=== PATIENT | male | born 1935 | race Caucasian/White ===

== ENCOUNTER 2023-07-17 11:54 | Inpatient (IN) ==
[2023-07-17] MEDS ORDERED: 0.9 % SODIUM CHLORIDE 500 ML IV ONE ×2 (12:40→15:35)
[2023-07-17 13:04] LABS: POC Calcium, Ionized 1.16 (1.16-1.32); POC Creatinine 3.5 (0.6-1.2); POC Potassium 6.3 (3.3-5.1)
[2023-07-17] MEDS ORDERED: DEXTROSE 50% 50 ML VIAL IV ONE (13:21)
[2023-07-17] MEDS ORDERED: 0.9 % SODIUM CHLORIDE 1,000 ML IV ONE (13:44)
[2023-07-17 14:12] LABS: Basophils # (Auto) 0.03 K/mcL (0.00-0.30); Basophils % (Auto) 0.2 % (0.0-2.0); Eosinophils # (Auto) 0.01 K/mcL (0.00-0.70); Eosinophils % (Auto) 0.1 % (0.0-7.0); Hematocrit 33.2 % (40.1-51.0); Hemoglobin 11.3 g/dL (13.7-17.5); Lymphocytes # (Auto) 1.08 K/mcL (1.50-4.80); Lymphocytes % (Auto) 7.2 % (15.5-49.0); Mean Cell Volume 97.6 fL (80.0-100.0); Mean Platelet Volume 8.6 fL (8.8-12.5); Monocytes # (Auto) 1.04 K/mcL (0.10-0.90); Neutrophils % (Auto) 84.4 % (38.0-78.0); Platelet Count 370 K/mcL (140-440); Red Cell Distribution Width 14.7 % (11.5-14.5); WBC 14.9 K/mcL (4.5-11.0)
[2023-07-17 14:19] LABS: Albumin 3.3 gm/dL (3.2-5.2); Bilirubin,Direct 0.3 mg/dL (<0.3); Bilirubin,Total 0.5 mg/dL (0.1-1.0); Globulin 2.9 gm/dL (2.2-3.7)
[2023-07-17 14:33] LABS: Blood Urea Nitrogen 92 mg/dL (8-23); Calcium 9.4 mg/dL (8.6-10.4); Carbon Dioxide 17 mmol/L (22-30); Chloride 94 mmol/L (96-108); Glomerular Filtration Rate 19; Glucose 44 mg/dL (70-105)
[2023-07-17] MEDS ORDERED: CALCIUM GLUCONATE 7 MEQ in DEXTROSE 5% IN WATER 50 ML IV ONE (14:42)
[2023-07-17] MEDS ORDERED: INSULIN REGULAR, HUMAN 1 UNIT/0.01 ML UNIT IV ONE (14:42)
[2023-07-17] MEDS ORDERED: DEXTROSE 50% 50 ML SYRINGE IV ONE (14:45)
[2023-07-17] MEDS ORDERED: CEFEPIME 1 GM VIAL IV ONE (14:48)
[2023-07-17 15:31] LABS: Appearance,Urine CLEAR (Clear); Bilirubin,Urine Negative (Negative); Color,Urine YELLOW; Culture Indicated,Urine No; Glucose,Urine (UA) Negative (Negative); Ketones,Urine Negative (Negative); Leukocyte Esterase,Urine Negative /uL (Negative); Nitrate,Urine Negative (Negative); Protein,Urine Negative (Negative); Specific Gravity,Urine 1.017 (1.000-1.035); Urine Blood Negative (Negative); Urobilinogen,Urine Negative
[2023-07-17] MEDS ORDERED: NOREPINEPHRINE BITARTRATE 4 MG/4 ML VIAL IV ONE (15:33)
[2023-07-17] MEDS ORDERED: 0.9 % SODIUM CHLORIDE 250 ML IV SCH (15:45)
[2023-07-17] MEDS ORDERED: NOREPINEPHRINE BITARTRATE 8 MG in 0.9 % SODIUM CHLORIDE 242 ML IV SCH (15:45)
[2023-07-17 15:50] LABS: Urea Nitrogen, Urine 428 mg/dL
[2023-07-17 15:56] LABS: POC Calcium, Ionized 1.3 (1.16-1.32); POC Creatinine 3.2 (0.6-1.2); POC Potassium 5.4 (3.3-5.1)
[2023-07-17 15:57] LABS: Creatinine,Urine Random 151.1 mg/dL (39.0-259.0)
[2023-07-17] MEDS ORDERED: SODIUM ZIRCONIUM CYCLOSILICATE 10 GM PACKET PO ONE (16:02)
[2023-07-17] MEDS ORDERED: morphine 2 MG/ML VIAL IV ONE (16:40)
[2023-07-17] MEDS ORDERED: SODIUM ZIRCONIUM CYCLOSILICATE 10 GM PACKET PO SCH (17:00)
[2023-07-17] MEDS ORDERED: DEXTROSE 31 GM ORAL.SUSP PO PRN (18:06)
[2023-07-17] MEDS ORDERED: DEXTROSE 50% 50 ML VIAL IV PRN (18:06)
[2023-07-17] MEDS ORDERED: NALOXONE HCL 0.4 MG/ML VIAL IV PRN (18:46)
[2023-07-17] MEDS ORDERED: SENNOSIDES 1 TABLET PO PRN (18:46)
[2023-07-17] MEDS ORDERED: ACETAMINOPHEN 325 MG TABLET PO PRN (18:46)
[2023-07-17] MEDS ORDERED: BISACODYL 10 MG SUPP.RECT PR PRN (18:46)
[2023-07-17] MEDS ORDERED: ONDANSETRON 4 MG/2 ML VIAL IV PRN (18:46)
[2023-07-17 18:58] LABS: Hemoglobin A1C 5.7 % Hgb (4.0-6.0)
[2023-07-17 20:37] LABS: Thyroid Stimulating Hormone 2.64 uIU/mL (0.27-5.01)
[2023-07-17 20:41] LABS: ALT/SGPT 15 U/L (<40); AST/SGOT 16 U/L (<40); Albumin/Globulin Ratio 1.1 (1.0-2.3); Alkaline Phosphatase 99 U/L (39-117); Bilirubin,Total 0.7 mg/dL (0.1-1.0); Blood Urea Nitrogen 86 mg/dL (8-23); Calcium 9.1 mg/dL (8.6-10.4); Carbon Dioxide 12 mmol/L (22-30); Chloride 98 mmol/L (96-108); Globulin 2.8 gm/dL (2.2-3.7); Glomerular Filtration Rate 26; Glucose 111 mg/dL (70-105)
[2023-07-17] MEDS: INSULIN LISPRO 1 UNIT/0.01 ML UNIT SQ SCH (20:51)
[2023-07-17] MEDS: FAMOTIDINE/PF 20 MG/2 ML VIAL IV SCH (20:53)
[2023-07-17] MEDS: 0.9 % SODIUM CHLORIDE 10 ML SYRINGE IV SCH (20:54)
[2023-07-17] MEDS: HYDROcodone/APAP 5/325MG TABLET PO PRN (20:55)
[2023-07-17 22:03] LABS: Iron 78 ug/dL (61-157)
[2023-07-17] MEDS: HYDROmorphone 0.5 MG/0.5 ML SYRINGE IV PRN (23:36)
[2023-07-18] MEDS ORDERED: SODIUM ZIRCONIUM CYCLOSILICATE 10 GM PACKET PO SCH
[2023-07-18] MEDS: NOREPINEPHRINE BITARTRATE 8 MG in 0.9 % SODIUM CHLORIDE 242 ML IV SCH ×3 (03:49→16:57)
[2023-07-18] MEDS: HYDROcodone/APAP 5/325MG TABLET PO PRN ×2 (03:51→23:17)
[2023-07-18] MEDS: 0.9 % SODIUM CHLORIDE 10 ML SYRINGE IV SCH ×3 (05:29→22:44)
[2023-07-18 06:39] LABS: Basophils # (Auto) 0.03 K/mcL (0.00-0.30); Basophils % (Auto) 0.2 % (0.0-2.0); Eosinophils # (Auto) 0 K/mcL (0.00-0.70); Eosinophils % (Auto) 0 % (0.0-7.0); Hemoglobin 10.6 g/dL (13.7-17.5); Lymphocytes # (Auto) 0.86 K/mcL (1.50-4.80); Lymphocytes % (Auto) 5.5 % (15.5-49.0); Mean Cell Volume 100.9 fL (80.0-100.0); Mean Corpuscular HGB Conc 32.1 g/dL (31.0-36.0); Mean Platelet Volume 8.4 fL (8.8-12.5); Monocytes # (Auto) 1.29 K/mcL (0.10-0.90); Monocytes % (Auto) 8.2 % (1.0-12.0); Neutrophils % (Auto) 85.5 % (38.0-78.0); Platelet Count 327 K/mcL (140-440); RBC 3.27 M/mcL (4.63-6.08); Red Cell Distribution Width 14.6 % (11.5-14.5); WBC 15.7 K/mcL (4.5-11.0)
[2023-07-18] MEDS: INSULIN LISPRO 1 UNIT/0.01 ML UNIT SQ SCH ×4 (07:14→22:43)
[2023-07-18 07:16] LABS: ALT/SGPT 13 U/L (<40); AST/SGOT 14 U/L (<40); Albumin 2.7 gm/dL (3.2-5.2); Alkaline Phosphatase 94 U/L (39-117); Bilirubin,Total 0.6 mg/dL (0.1-1.0); Blood Urea Nitrogen 76 mg/dL (8-23); Calcium 9.2 mg/dL (8.6-10.4); Carbon Dioxide 11 mmol/L (22-30); Chloride 102 mmol/L (96-108); Globulin 2.8 gm/dL (2.2-3.7); Glomerular Filtration Rate 33; Glucose 124 mg/dL (70-105)
[2023-07-18] MEDS: FAMOTIDINE/PF 20 MG/2 ML VIAL IV SCH (08:38)
[2023-07-18] MEDS: SODIUM BICARBONATE 650 MG TABLET PO SCH ×3 (09:25→22:43)
[2023-07-18] MEDS: SODIUM ZIRCONIUM CYCLOSILICATE 10 GM PACKET PO SCH ×3 (09:25→22:43)
[2023-07-18] MEDS: AMPICILLIN SODIUM/SULBACTAM NA 1.5 GM in 0.9 % SODIUM CHLORIDE 50 ML IV SCH ×3 (09:37→22:43)
[2023-07-18] MEDS: HYDROmorphone 0.5 MG/0.5 ML SYRINGE IV PRN (18:50)
[2023-07-18 19:11] LABS: Blood Urea Nitrogen 68 mg/dL (8-23); Calcium 9.3 mg/dL (8.6-10.4); Carbon Dioxide 15 mmol/L (22-30); Chloride 101 mmol/L (96-108); Glomerular Filtration Rate 38; Glucose 143 mg/dL (70-105)
[2023-07-18] MEDS: APIXABAN 5 MG TABLET PO SCH (22:43)
[2023-07-19] MEDS: LACTATED RINGERS 1,000 ML IV SCH ×2 (00:05→11:37)
[2023-07-19] MEDS: 0.9 % SODIUM CHLORIDE 250 ML IV SCH ×2 (00:05→14:33)
[2023-07-19] MEDS: HYDROmorphone 0.5 MG/0.5 ML SYRINGE IV PRN (01:06)
[2023-07-19] MEDS: AMPICILLIN SODIUM/SULBACTAM NA 1.5 GM in 0.9 % SODIUM CHLORIDE 50 ML IV SCH ×4 (02:57→20:53)
[2023-07-19 06:39] LABS: Basophils # (Auto) 0.05 K/mcL (0.00-0.30); Basophils % (Auto) 0.4 % (0.0-2.0); Eosinophils # (Auto) 0.02 K/mcL (0.00-0.70); Eosinophils % (Auto) 0.2 % (0.0-7.0); Hematocrit 36.7 % (40.1-51.0); Hemoglobin 12.4 g/dL (13.7-17.5); Lymphocytes # (Auto) 1.75 K/mcL (1.50-4.80); Lymphocytes % (Auto) 15.5 % (15.5-49.0); Mean Cell Volume 97.3 fL (80.0-100.0); Mean Corpuscular HGB Conc 33.8 g/dL (31.0-36.0); Mean Platelet Volume 8.8 fL (8.8-12.5); Monocytes # (Auto) 1.04 K/mcL (0.10-0.90); Monocytes % (Auto) 9.2 % (1.0-12.0); Neutrophils % (Auto) 73.7 % (38.0-78.0); Platelet Count 363 K/mcL (140-440); RBC 3.77 M/mcL (4.63-6.08); Red Cell Distribution Width 14.7 % (11.5-14.5); WBC 11.3 K/mcL (4.5-11.0)
[2023-07-19] MEDS: NOREPINEPHRINE BITARTRATE 8 MG in 0.9 % SODIUM CHLORIDE 242 ML IV SCH ×2 (06:45→22:59)
[2023-07-19] MEDS: 0.9 % SODIUM CHLORIDE 10 ML SYRINGE IV SCH ×4 (06:46→22:41)
[2023-07-19 07:15] LABS: ALT/SGPT 14 U/L (<40); AST/SGOT 16 U/L (<40); Albumin 3.1 gm/dL (3.2-5.2); Alkaline Phosphatase 109 U/L (39-117); Bilirubin,Total 0.9 mg/dL (0.1-1.0); Blood Urea Nitrogen 56 mg/dL (8-23); Calcium 9.4 mg/dL (8.6-10.4); Carbon Dioxide 15 mmol/L (22-30); Chloride 101 mmol/L (96-108); Globulin 3.1 gm/dL (2.2-3.7); Glomerular Filtration Rate 44; Glucose 128 mg/dL (70-105)
[2023-07-19] MEDS: INSULIN LISPRO 1 UNIT/0.01 ML UNIT SQ SCH ×4 (07:47→20:52)
[2023-07-19] MEDS: LIDOCAINE PATCH TOPICAL SCH ×2 (07:47→09:07)
[2023-07-19] MEDS: SODIUM BICARBONATE 650 MG TABLET PO SCH ×3 (09:06→20:52)
[2023-07-19] MEDS: APIXABAN 5 MG TABLET PO SCH ×2 (09:06→20:53)
[2023-07-19] MEDS: FAMOTIDINE/PF 20 MG/2 ML VIAL IV SCH (09:07)
[2023-07-19] MEDS: SODIUM ZIRCONIUM CYCLOSILICATE 10 GM PACKET PO SCH ×3 (09:07→20:53)
[2023-07-19] MEDS: ALBUMIN HUMAN 12.5 GM/50 ML VIAL IV SCH ×3 (11:00→22:41)
[2023-07-19] MEDS ORDERED: LACTATED RINGERS 500 ML IV ONE ×2 (16:15→23:47)
[2023-07-19] MEDS: HYDROCORTISONE SOD SUCC 100 MG VIAL IV SCH ×2 (16:35→22:19)
[2023-07-19] MEDS: HYDROcodone/APAP 5/325MG TABLET PO PRN ×2 (16:47→22:59)
[2023-07-19] MEDS ORDERED: NOREPINEPHRINE BITARTRATE 8 MG in 0.9 % SODIUM CHLORIDE 242 ML IV SCH (17:00)
[2023-07-20] MEDS: 0.9 % SODIUM CHLORIDE 250 ML IV SCH ×2 (02:03→14:13)
[2023-07-20] MEDS: 0.9 % SODIUM CHLORIDE 10 ML SYRINGE IV SCH ×6 (03:09→21:30)
[2023-07-20] MEDS: AMPICILLIN SODIUM/SULBACTAM NA 1.5 GM in 0.9 % SODIUM CHLORIDE 50 ML IV SCH ×4 (03:09→21:32)
[2023-07-20] MEDS: ALBUMIN HUMAN 12.5 GM/50 ML VIAL IV SCH ×3 (05:02→16:41)
[2023-07-20] MEDS: HYDROCORTISONE SOD SUCC 100 MG VIAL IV SCH ×3 (05:32→21:28)
[2023-07-20 07:18] LABS: Basophils # (Auto) 0.01 K/mcL (0.00-0.30); Basophils % (Auto) 0.1 % (0.0-2.0); Eosinophils # (Auto) 0 K/mcL (0.00-0.70); Eosinophils % (Auto) 0 % (0.0-7.0); Hematocrit 29.2 % (40.1-51.0); Hemoglobin 9.8 g/dL (13.7-17.5); Lymphocytes # (Auto) 0.63 K/mcL (1.50-4.80); Lymphocytes % (Auto) 6.4 % (15.5-49.0); Mean Cell Volume 99.3 fL (80.0-100.0); Mean Corpuscular HGB Conc 33.6 g/dL (31.0-36.0); Mean Platelet Volume 8.8 fL (8.8-12.5); Monocytes # (Auto) 0.34 K/mcL (0.10-0.90); Monocytes % (Auto) 3.5 % (1.0-12.0); Neutrophils % (Auto) 89.1 % (38.0-78.0); Platelet Count 282 K/mcL (140-440); RBC 2.94 M/mcL (4.63-6.08); Red Cell Distribution Width 14.4 % (11.5-14.5); WBC 9.8 K/mcL (4.5-11.0)
[2023-07-20] MEDS: INSULIN LISPRO 1 UNIT/0.01 ML UNIT SQ SCH ×4 (07:25→21:33)
[2023-07-20 08:12] LABS: ALT/SGPT 13 U/L (<40); AST/SGOT 14 U/L (<40); Albumin 2.6 gm/dL (3.2-5.2); Alkaline Phosphatase 88 U/L (39-117); Bilirubin,Total 0.5 mg/dL (0.1-1.0); Blood Urea Nitrogen 40 mg/dL (8-23); Calcium 8.9 mg/dL (8.6-10.4); Carbon Dioxide 19 mmol/L (22-30); Chloride 102 mmol/L (96-108); Globulin 2.6 gm/dL (2.2-3.7); Glomerular Filtration Rate 59; Glucose 192 mg/dL (70-105)
[2023-07-20] MEDS ORDERED: 0.9 % SODIUM CHLORIDE 10 ML SYRINGE IV PRN (09:16)
[2023-07-20] MEDS: APIXABAN 5 MG TABLET PO SCH ×2 (09:25→21:28)
[2023-07-20] MEDS: SODIUM BICARBONATE 650 MG TABLET PO SCH ×3 (09:25→21:28)
[2023-07-20] MEDS: LIDOCAINE PATCH TOPICAL SCH (09:25)
[2023-07-20] MEDS: FAMOTIDINE/PF 20 MG/2 ML VIAL IV SCH (09:25)
[2023-07-20 10:23] LABS: Appearance,Urine HAZY (Clear); Bilirubin,Urine Negative (Negative); Color,Urine RED; Culture Indicated,Urine yes; Glucose,Urine (UA) Negative (Negative); Ketones,Urine Negative (Negative); Leukocyte Esterase,Urine Negative /uL (Negative); Nitrate,Urine Negative (Negative); Protein,Urine 100 mg/dL (Negative); Urine Blood >=1.0 mg/dL (Negative); Urine RBC > 182 /hpf (0-1); Urine Squamous Epithelial Cell 0 /hpf (0-4); Urine WBC 102 /hpf (0-4); Urobilinogen,Urine Negative
[2023-07-20 10:31] LABS: INR 1.6 (0.9-1.1); Partial Thromboplastin Time 47.6 sec (20.0-37.0); Prothrombin Time 19.6 sec (11.9-14.5)
[2023-07-20] MEDS: NOREPINEPHRINE BITARTRATE 8 MG in 0.9 % SODIUM CHLORIDE 242 ML IV SCH (18:59)
[2023-07-20] MEDS: HYDROcodone/APAP 5/325MG TABLET PO PRN (21:28)
[2023-07-21] MEDS: 0.9 % SODIUM CHLORIDE 250 ML IV SCH (02:41)
[2023-07-21] MEDS: AMPICILLIN SODIUM/SULBACTAM NA 1.5 GM in 0.9 % SODIUM CHLORIDE 50 ML IV SCH ×2 (03:20→09:16)
[2023-07-21] MEDS: HYDROcodone/APAP 5/325MG TABLET PO PRN (03:55)
[2023-07-21] MEDS: HYDROCORTISONE SOD SUCC 100 MG VIAL IV SCH (05:41)
[2023-07-21] MEDS: 0.9 % SODIUM CHLORIDE 10 ML SYRINGE IV SCH ×2 (05:41→09:12)
[2023-07-21 06:50] LABS: Basophils # (Auto) 0.01 K/mcL (0.00-0.30); Basophils % (Auto) 0.1 % (0.0-2.0); Eosinophils # (Auto) 0 K/mcL (0.00-0.70); Eosinophils % (Auto) 0 % (0.0-7.0); Hematocrit 26.3 % (40.1-51.0); Lymphocytes # (Auto) 0.72 K/mcL (1.50-4.80); Lymphocytes % (Auto) 5.9 % (15.5-49.0); Mean Cell Volume 97.8 fL (80.0-100.0); Mean Corpuscular HGB Conc 34.2 g/dL (31.0-36.0); Mean Platelet Volume 8.9 fL (8.8-12.5); Monocytes # (Auto) 0.73 K/mcL (0.10-0.90); Neutrophils % (Auto) 87.1 % (38.0-78.0); Platelet Count 247 K/mcL (140-440); RBC 2.69 M/mcL (4.63-6.08); Red Cell Distribution Width 14.3 % (11.5-14.5); WBC 12.3 K/mcL (4.5-11.0)
[2023-07-21 07:21] LABS: ALT/SGPT 18 U/L (<40); AST/SGOT 18 U/L (<40); Albumin 2.9 gm/dL (3.2-5.2); Albumin/Globulin Ratio 1.3 (1.0-2.3); Alkaline Phosphatase 83 U/L (39-117); Bilirubin,Total 0.5 mg/dL (0.1-1.0); Blood Urea Nitrogen 36 mg/dL (8-23); Calcium 8.8 mg/dL (8.6-10.4); Carbon Dioxide 23 mmol/L (22-30); Chloride 104 mmol/L (96-108); Globulin 2.2 gm/dL (2.2-3.7); Glomerular Filtration Rate 53; Glucose 161 mg/dL (70-105)
[2023-07-21] MEDS: INSULIN LISPRO 1 UNIT/0.01 ML UNIT SQ SCH ×2 (09:11→11:59)
[2023-07-21] MEDS: SODIUM BICARBONATE 650 MG TABLET PO SCH (09:11)
[2023-07-21] MEDS: FAMOTIDINE/PF 20 MG/2 ML VIAL IV SCH (09:11)
[2023-07-21] MEDS: APIXABAN 5 MG TABLET PO SCH (09:11)
[2023-07-21] MEDS: LIDOCAINE PATCH TOPICAL SCH (10:49)
[2023-07-21] MEDS: NOREPINEPHRINE BITARTRATE 8 MG in 0.9 % SODIUM CHLORIDE 242 ML IV SCH (11:25)
== END 2023-07-21 12:01 | disposition short-term general hospital (02) | DRG 871 ==
LOC: ED 11:54 → ICU 18:25
PROVIDERS: ADMIT Internal Medicine; ATTEND Internal Medicine